=== PATIENT | female | born 1935 | race Caucasian/White ===

== ENCOUNTER → 2018-10-02 13:59 | Emergency (ER) | payer MEDICARE, OTHER ==
[~2018-10-02 13:59] MED LIST: Iohexol 350* (CONTRAST) 500 ML MDV IV ONE
[2018-10-02 14:42] LABS: ABS Basophils 0.1 10^3/ul (0-0.2); ABS Eosinophils 0.2 10^3/ul (0-0.6); ABS Lymphocytes 1.8 10^3/ul (1.0-4.8); ABS Monocytes 0.3 10^3/ul (0-0.8); ABS Neutrophils 3.5 10^3/ul (1.5-7.7); ABS Nucleated RBC 0 10^3/ul; Hematocrit 38 % (35-47); Hemoglobin 12.5 g/dl (12.0-16.0); Lymphocyte % 30.6 %; Mean Corpuscular HGB Conc 33 g/dl (31-36); Mean Corpuscular Hemoglobin 28 pg (27-31); Mean Corpuscular Volume 86 fL (80-97); Mean Platelet Volume 8.1 fL (7.4-10.4); Nucleated Red Blood Cells % 0.1; Platelet Count 224 10^3/ul (150-450); Red Blood Count 4.45 10^6/ul (4.00-5.40); Red Cell Distribution Width 16 % (10.5-15); White Blood Count 5.9 10^3/ul (3.5-10.8)
[2018-10-02 14:50] LABS: Activated Partial Thrombo Time 46.2 seconds (26.0-36.3); INR 2.77 (0.77-1.02)
[2018-10-02 15:01] LABS: Albumin 4.2 g/dL (3.2-5.2); Albumin/Globulin Ratio 1.8 (1-3); BUN/Creatinine Ratio 24.3 (8-20); C Reactive Protein 3.16 mg/L (<8.01); Calcium 9.8 mg/dL (8.6-10.3); EGFR Non-African American 75.3 (>60); Globulin 2.4 g/dL (2-4); Potassium 4.7 mmol/L (3.5-5.0); Total Bilirubin 0.8 mg/dL (0.2-1.0); Total Protein 6.6 g/dL (6.4-8.9)
--- NOTE | 2018-10-02 15:48 | ED ---
Respiratory - HPI Summary HPI Summary: 83 year old female presents with shortness of breath for past 4 days. She states that this shortness of breath is intermediate. There is no triggering factor. It started while she was taking after an 11 hours flight. she noticed increase swelling in her legs. No pain in her calf muscles. She is on warfarin for A. fib. No chest pain. no shortness of breath with excretion. went to exercise class today without any difficulties. not currently having SOB. She denies any cough or fever. No recent illness. No bowel pain. No nausea and vomiting. She denies any change in weight. She states she is not sleeping on any more pillows. Her floor polisher is Dr. Drummond. - History of Current Complaint Chief Complaint: EDShortnessOfBreath Stated Complaint: SHORT OF BREATH, SWELLING IN LOWER LEGS Time Seen by Provider: 10/02/18 14:18 Pain Intensity: 0 - Allergy/Home Medications Allergies/Adverse Reactions: Allergies Allergy/AdvReac Type Severity Reaction Status Date / Time acetaminophen [From Percocet] AdvReac See Comment Verified 10/02/18 14:13 oxycodone [From Percocet] AdvReac See Comment Verified 10/02/18 14:13 Home Medications: Home Medications Acetaminophen TAB* [Tylenol TAB*] 650 mg PO Q6H PRN 10/02/18 [History Confirmed 10/02/18] Alendronate (NF) [Fosamax (NF)] 70 mg PO WEEKLY 10/02/18 [History Confirmed 11/19] Biosil 1 cap PO BID 10/02/18 [History Confirmed 10/02/18] Calcium Citrate/Vitamin D3 [Citracal + D3 Maximum] 1 tab PO DAILY 10/02/18 [ History Confirmed 10/02/18] Cholecalciferol (Vitamin D3) [Vitamin D3] 1,000 unit PO DAILY 10/02/18 [History Confirmed 10/02/18] Furosemide TAB* [Lasix TAB*] 10 mg PO SUTUTHSA 10/02/18 [History Confirmed 10/02] Gabapentin CAP(*) [Neurontin 100 mg CAP(*)] 200 - 300 mg PO BEDTIME 10/02/18 [ History Confirmed 10/02/18] L.acidoph,Paracasei, B.lactis [Probiotic] 1 cap PO DAILY 10/02/18 [History Confirmed 10/02/18] Metoprolol Succinate XL TAB* [Toprol XL TAB*] 25 mg PO DAILY 10/02/18 [History Confirmed 10/02/18] Multivit-Min/Lycop/Lut/[id number] [Phytomulti] 1 tab PO QAM 10/02/18 [History Confirmed 10/02/18] Varicella-Zoster Ge/As01b/Pf* [Shingrix Vial Kit*] 50 mcg IM ONCE 10/02/18 [ History Confirmed 10/02/18] Vitamin B Complex CAP* [B Complex CAP*] 1 cap PO BID 10/02/18 [History Confirmed 10/02/18] Warfarin TAB(*) [Coumadin TAB(*)] 1 mg PO DAILY 10/02/18 [History Confirmed 11/19] Warfarin TAB(*) [Coumadin TAB(*)] 4 mg PO DAILY 10/02/18 [History Confirmed 11/19] PMH/Surg Hx/FS Hx/Imm Hx Endocrine/Hematology History: Reports: Hx Anticoagulant Therapy Cardiovascular History: Reports: Hx Atrial Fibrillation, Hx Hypertension Musculoskeletal History: Denies: Hx Osteoporosis Neurological History: Comment Only: Other Neuro Impairments/Disorders - PT STATES VERTIGO,NASEA, NO TRAUMA Infectious Disease History: No Infectious Disease History: Reports: Traveled Outside the [place] in Last 30 Days - Family History Known Family History: Positive: Hypertension - Social History Alcohol Use: Daily Alcohol Amount: glass of wine with dinner Substance Use Type: Reports: None Smoking Status (MU): Never Smoked Tobacco Review of Systems Negative: Fever Negative: Chest Pain Positive: Shortness Of Breath. Negative: Cough Negative: Abdominal Pain All Other Systems Reviewed And Are Negative: Yes Physical Exam Triage Information Reviewed: Yes Vital Signs On Initial Exam: Initial Vitals Temp Pulse Resp BP Pulse Ox 97.4 F 63 14 162/77 98 10/02/18 14:10 10/02/18 14:10 10/02/18 14:10 10/02/18 14:10 10/02/18 14:10 Vital Signs Reviewed: Yes Appearance: Positive: Well-Appearing Skin: Positive: Warm, Dry Head/Face: Positive: Normal Head/Face Inspection Eyes: Positive: Normal, Conjunctiva Clear ENT: Positive: Pharynx normal Respiratory/Lung Sounds: Positive: Clear to Auscultation, Breath Sounds Present Cardiovascular: Positive: Normal, RRR Abdomen Description: Positive: Nontender, Soft Bowel Sounds: Positive: Present Musculoskeletal: Positive: Edema Left - equal to other leg, Edema Right - equal to other leg, Other - good pulses Neurological: Positive: Normal Psychiatric: Positive: Normal Diagnostics - Vital Signs Vital Signs Temp Pulse Resp BP Pulse Ox 10/02/18 15:15 23 129/71 10/02/18 15:00 59 16 97 10/02/18 14:43 61 16 132/68 96 10/02/18 14:14 79 97 10/02/18 14:13 75 162/77 98 10/02/18 14:10 97.4 F 63 14 162/77 98 - Laboratory Lab Results: Lab Results 10/02/18 10/02/18 10/02/18 Range/Units 14:28 14:28 14:28 WBC 5.9 (3.5-10.8) 10^3/ul RBC 4.45 (4.00-5.40) 10^6/ul Hgb 12.5 (12.0-16.0) g/dl Hct 38 (35-47) % MCV 86 (80-97) fL MCH 28 (27-31) pg MCHC 33 (31-36) g/dl RDW 16 H (10.5-15) % Plt Count 224 (150-450) 10^3/ul MPV 8.1 (7.4-10.4) fL Neut % (Auto) 59.6 % Lymph % (Auto) 30.6 % Alexander % (Auto) 5.8 % Eos % (Auto) 3.0 % Baso % (Auto) 1.0 % Absolute Neuts (auto) 3.5 (1.5-7.7) 10^3/ul Absolute Lymphs (auto) 1.8 (1.0-4.8) 10^3/ul Absolute Monos (auto) 0.3 (0-0.8) 10^3/ul Absolute Eos (auto) 0.2 (0-0.6) 10^3/ul Absolute Basos (auto) 0.1 (0-0.2) 10^3/ul Absolute Nucleated RBC 0 10^3/ul Nucleated RBC % 0.1 INR (Anticoag Therapy) (0.77-1.02) APTT (26.0-36.3) seconds D-Dimer, Quantitative (Less Than 230) ng/mL Sodium 136 (135-145) mmol/L Potassium 4.7 (3.5-5.0) mmol/L Chloride 104 (101-111) mmol/L Carbon Dioxide 28 (22-32) mmol/L Anion Gap 4 (2-11) mmol/L BUN 18 (6-24) mg/dL Creatinine 0.74 (0.51-0.95) mg/dL Est GFR ( Amer) 91.1 (>60) Est GFR (Non-Af Amer) 75.3 (>60) BUN/Creatinine Ratio 24.3 H (8-20) Glucose 123 H (70-100) mg/dL Lactic Acid 1.3 (0.5-2.0) mmol/L Calcium 9.8 (8.6-10.3) mg/dL Total Bilirubin 0.80 (0.2-1.0) mg/dL AST 33 (13-39) U/L ALT 31 (7-52) U/L Alkaline Phosphatase 76 (34-104) U/L Troponin I 0.01 (<0.04) ng/mL C-Reactive Protein 3.16 (<8.01) mg/L B-Natriuretic Peptide (<=100) pg/mL Total Protein 6.6 (6.4-8.9) g/dL Albumin 4.2 (3.2-5.2) g/dL Globulin 2.4 (2-4) g/dL Albumin/Globulin Ratio 1.8 (1-3) 10/02/18 10/02/18 Range/Units 14:28 14:28 WBC (3.5-10.8) 10^3/ul RBC (4.00-5.40) 10^6/ul Hgb (12.0-16.0) g/dl Hct (35-47) % MCV (80-97) fL MCH (27-31) pg MCHC (31-36) g/dl RDW (10.5-15) % Plt Count (150-450) 10^3/ul MPV (7.4-10.4) fL Neut % (Auto) % Lymph % (Auto) % Alexander % (Auto) % Eos % (Auto) % Baso % (Auto) % Absolute Neuts (auto) (1.5-7.7) 10^3/ul Absolute Lymphs (auto) (1.0-4.8) 10^3/ul Absolute Monos (auto) (0-0.8) 10^3/ul Absolute Eos (auto) (0-0.6) 10^3/ul Absolute Basos (auto) (0-0.2) 10^3/ul Absolute Nucleated RBC 10^3/ul Nucleated RBC % INR (Anticoag Therapy) 2.77 H (0.77-1.02) APTT 46.2 H (26.0-36.3) seconds D-Dimer, Quantitative < 200 (Less Than 230) ng/mL Sodium (135-145) mmol/L Potassium (3.5-5.0) mmol/L Chloride (101-111) mmol/L Carbon Dioxide (22-32) mmol/L Anion Gap (2-11) mmol/L BUN (6-24) mg/dL Creatinine (0.51-0.95) mg/dL Est GFR ( Amer) (>60) Est GFR (Non-Af Amer) (>60) BUN/Creatinine Ratio (8-20) Glucose (70-100) mg/dL Lactic Acid (0.5-2.0) mmol/L Calcium (8.6-10.3) mg/dL Total Bilirubin (0.2-1.0) mg/dL AST (13-39) U/L ALT (7-52) U/L Alkaline Phosphatase (34-104) U/L Troponin I (<0.04) ng/mL C-Reactive Protein (<8.01) mg/L B-Natriuretic Peptide 325 H (<=100) pg/mL Total Protein (6.4-8.9) g/dL Albumin (3.2-5.2) g/dL Globulin (2-4) g/dL Albumin/Globulin Ratio (1-3) Result Diagrams: 10/02/18 14:28 10/02/18 14:28 Lab Statement: Any lab studies that have been ordered have been reviewed, and results considered in the medical decision making process. - Radiology chest Radiology Interpretation Completed By: Radiologist Summary of Radiographic Findings: IMPRESSION: #. Mild pulmonary vascular congestion and interstitial edema with associated small pleural. effusion. - CT cta CT Interpretation Completed By: Radiologist Summary of CT Findings: IMPRESSION: No evidence of pulmonary embolus. Cardiomegaly with moderate size right pleural effusion. There may be interstitial edema in. the possibility of CHF should BE considered. - EKG No standard instances Cardiac Rate: NL EKG Rhythm: Atrial Fibrillation Summary of EKG Findings: atrial fibrillation Disposition - Course Course Of Treatment: 83 year old female presents with shortness of breath for past 4 days. She states that this shortness of breath is intermediate. There is no triggering factor. It started while she was taking after an 11 hours flight. she noticed increase swelling in her legs. No pain in her calf muscles. She is on warfarin for A. fib. No chest pain. no shortness of breath with excretion. went to exercise class today without any difficulties. not currently having SOB. She denies any cough or fever. No recent illness. No bowel pain. No nausea and vomiting. She denies any change in weight. She states she is not sleeping on any more pillows. On exam lungs clear to auscultation. Abdomen soft nontender. Bilateral edema noted to both legs equal in size. EKG shows A. fib which patient has history of. Chest x-ray shows pulmonary edema. Lab work without any male except for BNP of 325. Got CT with recent travel and just shows pulmonary edema. Discussed case with Dr. Drummond said to increase Lasix dose until the edema subsides. Told to follow up with Dr. Drummond. will have do current dose of 20mg twice a day. patient understands agrees with plan. - Differential Dx - Cardiopulmonary Differential Diagnoses - Cardiopulmonary: CHF, Lower Resp Infection, Pulmonary Embolism - Diagnoses Provider Diagnoses: Shortness of breath, CHF (congestive heart failure) - Physician Notifications Discussed Care Of Patient With: Crystal Drummond Time Discussed With Above Provider: 16:00 - agree with increase in lasix until edema decrease Discharge - Sign-Out/Discharge Documenting (check all that apply): Patient Departure - Discharge Plan Condition: Good Disposition: HOME Patient Education Materials: Pulmonary Edema (ED) Referrals: Abisai Chew MD [Primary Care Provider] - Crystal Drummond MD [Medical Doctor] - Additional Instructions: increase lasix to twice a day (40mg daily) once in morning and once in evening until leg edema is back to normal then return to normal dose weigh self daily and record weights wear compression socks Follow up with cardiology Return to ED if develop any chest pain or any new or worsening symptoms - Billing Disposition and Condition Condition: GOOD Disposition: Home
[2018-10-02 17:27] VITALS: BP 155/71
== END | disposition home or self-care (01) ==
LOC: ED 13:59
DX: I50.9 Heart failure, unspecified (principal); R06.02 Shortness of breath; I48.91 Unspecified atrial fibrillation; Z79.01 Long term (current) use of anticoagulants; I10 Essential (primary) hypertension; Z88.6 Allergy status to analgesic agent; Z88.5 Allergy status to narcotic agent
CPT/HCPCS: 36415; 71046; 71275; 80053; 83605; 83880; 84484; 85025; 85379; 85610; 85730; 86140; 93005; 99283; Q9967